=== PATIENT | male | born 1965 | race African-American/Black ===

== ENCOUNTER 2024-08-08 09:30 | Emergency (ER) | payer SELFPAY ==
[2024-08-08 10:01] LABS: #Basophils 0.1 thou/uL (0.0-0.2); #Eosinophils 0.1 thou/uL (0.0-0.7); #Monocytes 0.7 thou/uL (0.11-0.59); %Basophils 0.9 % (0.0-1.0); %Eosinophils 0.7 % (0.0-10.0); %Lymphocytes 25.1 % (21.0-51.0); %Monocytes 9.1 % (0.0-10.0); %Neutrophils 64.1 % (42.0-75.0); Hematocrit 42.9 % (42.0-52.0); Hemoglobin 13.9 g/dL (14.0-18.0); Mean Corpuscular HGB CONC 32.3 g/dL (32.0-36.0); Mean Corpuscular Hemoglobin 30.4 pg (27.0-31.0); Mean Platelet Volume 5.8 fL (7.4-10.4); Platelet Count 311 10x3/uL (130-400); RBC Distribution Width 11.2 % (11.5-14.5); Red Blood Cell (RBC) Count 4.56 mill/uL (4.70-6.10); White Blood Cell (WBC) Count 7.8 10x3/uL (4.8-10.8)
[2024-08-08] MEDS ORDERED: hydrALAZINE 20 MG/ML VIAL ONE (10:02)
[2024-08-08 10:18] LABS: ALT (SGPT) 26 U/L (8-55); AST (SGOT) 35 U/L (5-34); Albumin 3.9 g/dL (3.5-5.0); Alkaline Phosphatase 103 U/L (40-110); Anion Gap 16 mmol/L (10-20); BUN (Urea Nitrogen) 12 mg/dL (8.4-25.7); Bilirubin, Total 0.5 mg/dL (0.2-1.2); Calc. Creatinine Clearance 0 mL/min (70-130); Calcium 9.8 mg/dL (7.8-10.44); Carbon Dioxide 23 mmol/L (22-29); Chloride 95 mmol/L (98-107); Estimated GFR 94; Glucose 104 mg/dL (70-105); Potassium 4.9 mmol/L (3.5-5.1); Protein, Total 7.9 g/dL (6.0-8.3); Sodium 129 mmol/L (136-145)
[2024-08-08] MEDS ORDERED: Lorazepam 2 MG/ML VIAL ONE (10:57)
== END 2024-08-08 11:50 | disposition home or self-care (01) ==
LOC: NAV ERS 09:30
DX: I10 Essential (primary) hypertension (principal); E87.1 Hypo-osmolality and hyponatremia; F10.20 Alcohol dependence, uncomplicated; F17.210 Nicotine dependence, cigarettes, uncomplicated
CPT/HCPCS: 80053; 85025; 93005; 96374; 96375; J0360; J2060

== ENCOUNTER 2025-04-01 21:03 | Emergency (ER) | payer SELFPAY ==
[2025-04-01] MEDS ORDERED: Acetaminophen 500 MG TAB ONE (21:32)
[2025-04-01] MEDS ORDERED: Cyclobenzaprine 10 MG TAB ONE (21:32)
== END 2025-04-01 22:55 | disposition home or self-care (01) ==
LOC: NAV ERS 21:03
DX: S76.012A Strain of muscle, fascia and tendon of left hip, initial encounter (principal); S39.012A Strain of muscle, fascia and tendon of lower back, initial encounter; I10 Essential (primary) hypertension; X50.3XXA Overexertion from repetitive movements, initial encounter; Y92.89 Other specified places as the place of occurrence of the external cause
CPT/HCPCS: 72131; 72192